=== PATIENT | female | born 1995 | race Caucasian/White ===

== ENCOUNTER 2023-09-15 17:54 | Inpatient (IN) ==
[2023-09-15] MEDS ORDERED: Lidocaine 1% VIAL 10 MG/ML 30 ML VIAL INJ PRN (18:55)
[2023-09-15] MEDS ORDERED: Prochlorperazine 5 mg/ml 2 ml VIAL (10 mg) IV PRN (18:55)
[2023-09-15 19:52] LABS: Urine Benzodiazepine Screen None Detected (None Detect); Urine Cannabinoids Screen None Detected (None Detect); Urine Opiates Screen None Detected (None Detect)
[2023-09-15] MEDS: Dinoprostone 10 MG VAG.SUPP VAGINAL ONE (20:36)
[2023-09-15 22:19] LABS: ABS Lymphocytes 2.5 10^3/uL (1.0-4.8); ABS Monocytes 0.6 10^3/uL (0.0-0.9); ABS Neutrophils 8.1 10^3/uL (1.5-7.6); Eosinophil % 0.2 %; Hematocrit 32.2 % (35-45); Hemoglobin 11.2 g/dL (11.5-14.3); Mean Corpuscular Hemoglobin 29.9 pg (27-33); Mean Corpuscular Hgb Conc 34.7 g/dL (31-36); Mean Corpuscular Volume 86.4 fL (80-97); Mean Platelet Volume 8.8 fL (7.5-11.2); Platelet Count 217 10^3/uL (150-450); Red Blood Count 3.73 10^6/uL (3.63-4.92); Red Cell Distribution Width 13.3 % (12-17); White Blood Count 11.2 10^3/uL (3.8-11.8)
[2023-09-16] MEDS: Buffered Lidocaine 1% SYRIN 1 ml INTRADERM ONE ×2 (08:13→08:14)
[2023-09-16] MEDS: Oxytocin in LR 20,000 MILLI.UNIT/1,000 ML BAG IV SCH (09:05)
[2023-09-16] MEDS: Penicillin G Potassium IV 5,000,000 UNITS in NS 0.9% 100 ml BAG 100 ML IVPB ONE (09:31)
[2023-09-16] MEDS: Lactated Ringers 1000 ml BAG 1,000 ML IV SCH ×2 (09:34)
[2023-09-16] MEDS ORDERED: Ondansetron 4 mg VIAL 2 MG/ML 2 ml VIAL IV PRN (13:50)
[2023-09-16] MEDS: fentaNYL 100 mcg/2 ml 50 MCG/ML VIAL IV SLOW PU ONE (14:06)
[2023-09-16] MEDS: Buffered Lidocaine 1% SYRIN 1 ml ONE (14:19)
[2023-09-16] MEDS: Penicillin G Potassium IV 3,000,000 UNITS in NS 0.9% 100 ml BAG 100 ML IVPB SCH (14:19)
[2023-09-16] MEDS: Morphine 10 MG/ML VIAL (1 ml) IV ONE (21:28)
[2023-09-17] MEDS: miSOPROStol 100 mcg TAB PO ONE (02:07)
[2023-09-17] MEDS ORDERED: Lidocaine 1.5% EPI 1:200,000 30 ML SDV ONE (16:29)
[2023-09-17] MEDS ORDERED: OBEPIDURAL (200 ML) 200 ML EPIDURAL ONE (16:29)
[2023-09-17] MEDS: OBEPIDURAL (200 ML) 200 ML EPIDURAL SCH (17:32)
[2023-09-17] MEDS: Phenylephrine 40 mcg/mL 10mL (400mcg) SYRINGE IV PUSH PRN (17:41)
[2023-09-17] MEDS: Lactated Ringers 1000 ml BAG 1,000 ML IV ONE (18:03)
[2023-09-17] MEDS ORDERED: Sodium Citrate/Citric Acid LIQ 15 ML UDC PO PRN (18:32)
[2023-09-17] MEDS ORDERED: Phenylephrine 40 mcg/mL 10mL (400mcg) SYRINGE IV PUSH PRN (18:32)
[2023-09-17] MEDS ORDERED: Lactated Ringers 1000 ml BAG 1,000 ML IV ONE (18:32)
[2023-09-17] MEDS ORDERED: Lactated Ringers 1000 ml BAG 1,000 ML IV SCH (19:00)
[2023-09-17 20:05] LABS: Urine Appearance Clear; Urine Bilirubin Negative (Negative); Urine Blood 2+ (Negative); Urine Color Yellow; Urine Glucose Negative (Negative); Urine Ketones 3+ (Negative); Urine Nitrite Negative (Negative); Urine Protein Trace (Negative); Urine Specific Gravity 1.021 (1.002-1.030); Urine Urobilinogen Negative (Negative); Urine pH 6.5 (5.0-8.0)
[2023-09-17 20:36] LABS: Urine Bacteria Absent /HPF (Absent); Urine Red Blood Cell 3+(>10/hpf) /HPF (0-Trace); Urine Squamous Epithelial Cell Present /HPF (Absent); Urine White Blood Cell 2+(11-20/hpf) /HPF (0-Trace)
[2023-09-18] MEDS ORDERED: Glycerin ADULT 2.4 gm SUPP PR PRN (00:41)
[2023-09-18] MEDS ORDERED: Oxytocin in LR 20,000 MILLI.UNIT/1,000 ML BAG IV SCH (00:45)
[2023-09-18] MEDS ORDERED: Lactated Ringers 1000 ml BAG 1,000 ML IV SCH (01:00)
[2023-09-18] MEDS: Dibucaine 1% OINT 28.35 GM TUBE PR PRN (01:22)
[2023-09-18] MEDS: Witch Hazel PAD JAR TOPICAL PRN (01:22)
[2023-09-19 07:30] LABS: ABS Eosinophils 0.2 10^3/uL (0.0-0.5); ABS Lymphocytes 2.2 10^3/uL (1.0-4.8); ABS Monocytes 0.6 10^3/uL (0.0-0.9); ABS Neutrophils 7.7 10^3/uL (1.5-7.6); Eosinophil % 1.5 %; Hematocrit 28.9 % (35-45); Hemoglobin 9.6 g/dL (11.5-14.3); Lymphocyte % 20.8 %; Mean Corpuscular Hemoglobin 29.1 pg (27-33); Mean Corpuscular Hgb Conc 33.1 g/dL (31-36); Mean Corpuscular Volume 87.8 fL (80-97); Mean Platelet Volume 8.7 fL (7.5-11.2); Platelet Count 186 10^3/uL (150-450); Red Blood Count 3.29 10^6/uL (3.63-4.92); Red Cell Distribution Width 13.5 % (12-17); White Blood Count 10.7 10^3/uL (3.8-11.8)
[2023-09-20 15:06] VITALS: BP 118/71
== END 2023-09-20 15:02 | disposition home or self-care (01) | DRG 560 ==
LOC: MCHOBOUT 17:54 → MCHOB 19:12
PROVIDERS: ADMIT Advanced Practice Midwife; ATTEND Advanced Practice Midwife